=== PATIENT | female | born 1960 | race Caucasian/White ===

== ENCOUNTER 2019-07-20 02:12 | Observation (INO) ==
[2019-07-20] MEDS ORDERED: Naloxone 0.4 MG/ML INJ IVP PRN (06:17)
[2019-07-20] MEDS ORDERED: Aspirin Enteric Coated 325 MG Tablet PO ONE (06:21)
[2019-07-20] MEDS ORDERED: 0.9 % Sodium Chloride 1,000 ML IVC SCH (06:30)
[2019-07-20 06:50] LABS: Basophils % 0.3 %; Eosinophils # 0.2 K/mcL (0.0-0.6); Eosinophils % 2.7 %; Hematocrit 33.3 % (35.3-44.9); Hemoglobin 10.9 g/dL (11.5-15.4); Immature Granulocytes % 0.3 % (0-4); Immature Reticulocyte % 14.2 % (11.0-38.0); Lymphocytes % 32.5 %; Mean Corpuscular HGB Conc 32.7 g/dL (31.6-35.5); Mean Corpuscular Hemoglobin 32.1 pg (28.0-33.3); Mean Corpuscular Volume 97.9 fL (83.0-100.0); Mean Platelet Volume 8.8 fL (9.4-12.4); Monocytes # 0.5 K/mcL (0.0-1.3); Monocytes % 8.3 %; Neutrophils # 3.5 K/mcL (1.6-8.9); Platelet Count 178 K/mcL (140-400); Red Cell Distribution Width 13.1 % (11.5-14.5); Retculocyte # 0.06 M/mcL (0.05-0.10); Reticulocyte % 1.9 % (1.6-2.8); Segmented Neutrophils % 55.9 %; White Blood Count 6.3 K/mcL (4.3-11.1)
[2019-07-20 07:08] LABS: Phosphorous 4.1 mg/dL (2.7-4.5)
[2019-07-20 07:09] LABS: Chol/HDL Ratio 4.1 (0-4.9)
[2019-07-20 07:10] LABS: Albumin 3.8 g/dL (3.5-5.7); Albumin/Globulin Ratio 1.5 (1.1-2.2); Bilirubin,Total 0.4 mg/dL (0.3-1.0); Calcium 9.1 mg/dL (8.6-10.3); Globulin 2.6 g/dL (2.4-3.5); Total Protein 6.4 g/dL (6.4-8.9)
[2019-07-20 07:11] LABS: % Iron Saturation 18 % (15-50); Iron 64 mcg/dL (50-170); Transferrin 258 mg/dL (203-362)
[2019-07-20 07:29] LABS: Ferritin 51 ng/mL (10-120)
[2019-07-20 07:31] LABS: Folate 18.6 ng/mL (3.0-16.0)
[2019-07-20 08:37] LABS: Estimated Average Glucose 137 mg/dl
[2019-07-20 13:07] LABS: Sodium, Urine 114.3 mEq/L
[2019-07-20 13:08] LABS: Bilirubin,Urine Negative (Negative); Blood,Urine Negative (Negative); Clarity,Urine Clear (Clear); Color,Urine Yellow (Yellow); Glucose,Urine (UA) Normal (Normal); Ketones,Urine Negative (Negative); Leukocyte Esterase,Urine Small (Negative); Nitrite,Urine Negative (Negative); Protein,Urine Negative (Neg-Trace); Specific Gravity,Urine 1.016 (1.010-1.025); Urobilinogen,Urine Normal (Normal)
[2019-07-20 13:12] LABS: Bacteria,Urine None Seen per hpf (None-Few); Hyaline Casts,Urine None Seen per lpf (None-Few); RBC,Urine 0-3 per hpf (0-3); Squamous Epithelial Cell,Urine Many per lpf (None-Few); WBC,Urine 0-3 per hpf (0-3)
[2019-07-20] MEDS ORDERED: Budesonide/Formoterol 160/4.5 1 PUFF INH IH PRN (14:57)
[2019-07-20] MEDS ORDERED: *HR* LORazepam 2 MG/ML VIAL IVP ONE (14:58)
[2019-07-20] MEDS: Gabapentin 300 MG CAPSULE PO SCH ×2 (15:08→20:42)
[2019-07-20] MEDS ORDERED: *HR* Dextrose 50 % in Water (Syg) 50 ML SYRINGE IVP PRN (18:54)
[2019-07-20] MEDS ORDERED: D5% in Water 1,000 ML IVC PRN (18:54)
[2019-07-20] MEDS ORDERED: Dextrose Gel 15 GM/37.5 ML TUBE PO PRN ×2 (18:54)
[2019-07-20] MEDS: Lisinopril-HCTZ 20-12.5mg TABLET PO SCH (20:38)
[2019-07-20] MEDS: Insulin LISPRO 300 UNITS/3 ML VIAL SQ SCH (22:34)
[2019-07-21 06:39] LABS: Hematocrit 33.5 % (35.3-44.9); Hemoglobin 11.2 g/dL (11.5-15.4); Mean Corpuscular HGB Conc 33.4 g/dL (31.6-35.5); Mean Corpuscular Hemoglobin 32.4 pg (28.0-33.3); Mean Corpuscular Volume 96.8 fL (83.0-100.0); Mean Platelet Volume 9.1 fL (9.4-12.4); Platelet Count 172 K/mcL (140-400); Red Blood Count 3.46 M/mcL (3.82-4.97); White Blood Count 4.6 K/mcL (4.3-11.1)
[2019-07-21 07:03] LABS: Calcium 9.3 mg/dL (8.6-10.3); Potassium 4.4 mEq/L (3.5-5.1)
[2019-07-21] MEDS ORDERED: NON-FORMULARY MEDICATION 1 EACH EACH (Meloxicam [Mobic] 15 MG) PO SCH (09:00)
[2019-07-21] MEDS: Gabapentin 300 MG CAPSULE PO SCH ×3 (09:34→21:06)
[2019-07-21] MEDS: BuPROPion XL (24 HR) 150 MG TABLET PO SCH (09:34)
[2019-07-21] MEDS: valACYclovir 500 MG TABLET PO SCH (09:34)
[2019-07-21] MEDS: Insulin LISPRO 300 UNITS/3 ML VIAL SQ SCH ×4 (09:35→21:13)
[2019-07-21] MEDS: Lisinopril-HCTZ 20-12.5mg TABLET PO SCH (10:12)
[2019-07-21] MEDS: *HR* Heparin 5,000 UNIT/ML VIAL SQ SCH (18:08)
[2019-07-22] MEDS: *HR* Heparin 5,000 UNIT/ML VIAL SQ SCH (05:12)
[2019-07-22 05:51] LABS: Hemoglobin 10.7 g/dL (11.5-15.4); Mean Corpuscular HGB Conc 33.4 g/dL (31.6-35.5); Mean Corpuscular Hemoglobin 31.8 pg (28.0-33.3); Mean Corpuscular Volume 95.2 fL (83.0-100.0); Mean Platelet Volume 9.2 fL (9.4-12.4); Platelet Count 184 K/mcL (140-400); Red Blood Count 3.36 M/mcL (3.82-4.97); Red Cell Distribution Width 12.8 % (11.5-14.5); White Blood Count 6.9 K/mcL (4.3-11.1)
[2019-07-22 06:12] LABS: Calcium 9.1 mg/dL (8.6-10.3); Potassium 4.3 mEq/L (3.5-5.1)
[2019-07-22 08:36] VITALS: BP 98/58
[2019-07-22] MEDS: Gabapentin 300 MG CAPSULE PO SCH (09:57)
[2019-07-22] MEDS: valACYclovir 500 MG TABLET PO SCH (09:58)
[2019-07-22] MEDS: Insulin LISPRO 300 UNITS/3 ML VIAL SQ SCH (09:58)
[2019-07-22] MEDS: BuPROPion XL (24 HR) 150 MG TABLET PO SCH (09:58)
== END 2019-07-22 12:22 | disposition home or self-care (01) ==
LOC: 3BNU
PROVIDERS: ADMIT Internal Medicine; ATTEND Internal Medicine